=== PATIENT | male | born 1985 | race Two or more races ===

== ENCOUNTER 2023-10-05 23:06 | Inpatient (IN) | payer OTHER ==
[2023-10-05] MEDS ORDERED: morphine SULFATE 4 MG/ML VIAL IVPUSH ONE (23:39)
[2023-10-05] MEDS ORDERED: SODIUM CHLORIDE 0.9% 500 ML INFUS.BAG IV ONE (23:39)
[2023-10-05] MEDS ORDERED: morphine CARPU-JECT 4 MG/1 ML DISP.SYRIN IVPUSH ONE (23:39)
[2023-10-06] MEDS ORDERED: morphine SULFATE 4 MG/ML VIAL ONE ×2 (00:03→04:45)
[2023-10-06 00:29] LABS: HEMATOCRIT 41.6 % (35.4-49); HEMOGLOBIN 13.9 GM/dL (11.7-16.9); MCH 27.8 pg (25.7-33.7); MCHC 33.5 g/dl (32.0-35.9); MEAN PLT VOLUME 8.1 fl (7.5-11.1); PLATELET COUNT 287 10^3/uL (134-434); RBC 5.01 M/mm3 (4.00-5.60); RDW 13.6 % (11.9-15.9)
[2023-10-06 01:05] LABS: POTASSIUM 3.7 mmol/L (3.5-5.1)
[2023-10-06 01:07] LABS: ALBUMIN 3.7 g/dl (3.4-5.0)
[2023-10-06 01:08] LABS: BLOOD UREA NITROGEN 12.8 mg/dL (7-18)
[2023-10-06 01:10] LABS: CREATININE 1.1 mg/dL (0.55-1.3)
[2023-10-06 01:12] LABS: BILIRUBIN,TOTAL 0.6 mg/dL (0.2-1); TOT PROT 7.9 g/dl (6.4-8.2)
[2023-10-06 01:37] LABS: URINE APPEARANCE CLEAR; URINE BILIRUBIN NEGATIVE (NEGATIVE); URINE COLOR YELLOW; URINE GLUCOSE (UA) NEGATIVE (NEGATIVE); URINE KETONE 2+ (NEGATIVE); URINE LEUK ESTERASE NEGATIVE (NEGATIVE); URINE NITRITE NEGATIVE (NEGATIVE); URINE PROTEIN TRACE (NEGATIVE); URINE UROBILINOGEN 0.2 mg/dL (0.2-1.0)
[2023-10-06 02:46] LABS: ANISOCYTOSIS 3+; MACROCYTOSIS 0; ROULEAU 2+
[2023-10-06] MEDS ORDERED: PIPERACILLIN/TAZOB 4.5 GM 4.5 GM in DEXTROSE 5%-WATER 100 ML IVPB ONE (03:18)
[2023-10-06] MEDS ORDERED: PIPERACILLIN/TAZOB 4.5 GM 4.5 GM/100 ML BAG IVPB ONE (03:43)
[2023-10-06] MEDS ORDERED: ONDANSETRON 4 MG/2 ML VIAL IVPUSH PRN (04:15)
[2023-10-06] MEDS ORDERED: ACETAMINOPHEN 325 MG TABLET (FP) PO PRN (04:15)
[2023-10-06] MEDS ORDERED: morphine CARPU-JECT 4 MG/1 ML DISP.SYRIN IVPUSH PRN (04:16)
[2023-10-06] MEDS: SODIUM CHLORIDE 1,000 ML IV SCH ×2 (04:35→20:11)
[2023-10-06 05:33] LABS: INR 1.35 (0.83-1.09); PROTHROMBIN TIME (PATIENT) 15.6 SEC (9.7-13.0)
[2023-10-06] MEDS ORDERED: ACETAMINOPHEN 1000 MG/100 ML BAG IVPB PRN (07:17)
[2023-10-06 07:42] LABS: HEMATOCRIT 38.9 % (35.4-49); HEMOGLOBIN 12.5 GM/dL (11.7-16.9); MCH 27.4 pg (25.7-33.7); MCHC 32.2 g/dl (32.0-35.9); MEAN CELL VOLUME 85.2 fl (80-96); MEAN PLT VOLUME 8.4 fl (7.5-11.1); PLATELET COUNT 256 10^3/uL (134-434); RBC 4.57 M/mm3 (4.00-5.60); RDW 13.5 % (11.9-15.9); WHITE BLOOD COUNT 18.6 K/mm3 (4.0-10.0)
[2023-10-06 08:02] LABS: POTASSIUM 3.7 mmol/L (3.5-5.1)
[2023-10-06 08:09] LABS: CALCIUM 8.4 mg/dL (8.5-10.1)
[2023-10-06 08:10] LABS: BLOOD UREA NITROGEN 11.5 mg/dL (7-18); MAGNESIUM 2.1 mg/dL (1.8-2.4)
[2023-10-06 08:13] LABS: PHOSPHOROUS 2.8 mg/dL (2.5-4.9)
[2023-10-06] MEDS: ENOXAPARIN NA (PORCINE) 40 MG/0.4 ML DISP.SYRIN SQ SCH (09:39)
[2023-10-06 11:54] VITALS: BMI 25.2
[2023-10-06] MEDS: PIPERACILLIN/TAZOB 3.375 GM 3.375 GM in DEXTROSE 5%-WATER - 50 ML IVPB SCH (17:26)
[2023-10-07] MEDS: morphine SULFATE 4 MG/ML VIAL IVPUSH PRN ×3 (01:04→23:47)
[2023-10-07] MEDS: PIPERACILLIN/TAZOB 3.375 GM 3.375 GM in DEXTROSE 5%-WATER - 50 ML IVPB SCH ×3 (02:16→17:06)
[2023-10-07] MEDS: SODIUM CHLORIDE 1,000 ML IV SCH ×2 (04:30→05:53)
[2023-10-07] MEDS: ENOXAPARIN NA (PORCINE) 40 MG/0.4 ML DISP.SYRIN SQ SCH (09:31)
[2023-10-07 09:32] LABS: BASO % 0.2 % (0-2.0); EOS % 0.1 % (0-4.5); HEMOGLOBIN 13.2 GM/dL (11.7-16.9); LYMPH % 6.8 % (8-40); MCH 28.2 pg (25.7-33.7); MCHC 33.8 g/dl (32.0-35.9); MEAN CELL VOLUME 83.5 fl (80-96); MEAN PLT VOLUME 8.5 fl (7.5-11.1); MONO % 6.4 % (3.8-10.2); NEUT % 86.5 % (42.8-82.8); PLATELET COUNT 287 10^3/uL (134-434); RBC 4.67 M/mm3 (4.00-5.60); RDW 13.3 % (11.9-15.9); WHITE BLOOD COUNT 13.6 K/mm3 (4.0-10.0)
[2023-10-07] MEDS ORDERED: PIPERACILLIN/TAZOB 3.375 GM 3.375 GM in DEXTROSE 5%-WATER - 50 ML IVPB ONE (10:00)
[2023-10-07 10:01] LABS: TOT PROT 7.1 g/dl (6.4-8.2)
[2023-10-07 10:04] LABS: CALCIUM 8.2 mg/dL (8.5-10.1); MAGNESIUM 2.3 mg/dL (1.8-2.4)
[2023-10-07 10:07] LABS: CREATININE 0.8 mg/dL (0.55-1.3)
[2023-10-07 10:09] LABS: BILIRUBIN,TOTAL 0.6 mg/dL (0.2-1)
[2023-10-07] MEDS ORDERED: SODIUM CHLORIDE 1,000 ML IV SCH (13:40)
[2023-10-08] MEDS: PIPERACILLIN/TAZOB 3.375 GM 3.375 GM in DEXTROSE 5%-WATER - 50 ML IVPB SCH ×3 (02:19→17:15)
[2023-10-08 09:16] LABS: BASO % 0.3 % (0-2.0); EOS % 0.4 % (0-4.5); HEMATOCRIT 40.4 % (35.4-49); HEMOGLOBIN 13.8 GM/dL (11.7-16.9); LYMPH % 11.8 % (8-40); MCH 28.3 pg (25.7-33.7); MEAN CELL VOLUME 83.3 fl (80-96); MEAN PLT VOLUME 8.3 fl (7.5-11.1); NEUT % 81.5 % (42.8-82.8); PLATELET COUNT 332 10^3/uL (134-434); RBC 4.85 M/mm3 (4.00-5.60); RDW 13.5 % (11.9-15.9); WHITE BLOOD COUNT 11.4 K/mm3 (4.0-10.0)
[2023-10-08] MEDS: morphine SULFATE 4 MG/ML VIAL IVPUSH PRN (09:37)
[2023-10-08 09:50] LABS: POTASSIUM 3.7 mmol/L (3.5-5.1)
[2023-10-08] MEDS: ENOXAPARIN NA (PORCINE) 40 MG/0.4 ML DISP.SYRIN SQ SCH (10:01)
[2023-10-08 10:14] LABS: ALBUMIN 3.1 g/dl (3.4-5.0); CALCIUM 8.7 mg/dL (8.5-10.1); MAGNESIUM 2.3 mg/dL (1.8-2.4)
[2023-10-08 10:15] LABS: BLOOD UREA NITROGEN 15.4 mg/dL (7-18)
[2023-10-08 10:17] LABS: CREATININE 0.8 mg/dL (0.55-1.3)
[2023-10-08 10:19] LABS: BILIRUBIN,TOTAL 0.5 mg/dL (0.2-1); TOT PROT 7.2 g/dl (6.4-8.2)
[2023-10-09] MEDS: PIPERACILLIN/TAZOB 3.375 GM 3.375 GM in DEXTROSE 5%-WATER - 50 ML IVPB SCH ×2 (03:20→09:43)
[2023-10-09 06:23] VITALS: RESP 18
[2023-10-09] MEDS: ENOXAPARIN NA (PORCINE) 40 MG/0.4 ML DISP.SYRIN SQ SCH (09:43)
[2023-10-09 10:23] LABS: POTASSIUM 3.2 mmol/L (3.5-5.1)
[2023-10-09 10:27] LABS: CALCIUM 8.5 mg/dL (8.5-10.1)
[2023-10-09 10:28] LABS: ALBUMIN 3.1 g/dl (3.4-5.0); BLOOD UREA NITROGEN 10.8 mg/dL (7-18)
[2023-10-09 10:31] LABS: CREATININE 0.9 mg/dL (0.55-1.3)
[2023-10-09 10:32] LABS: BILIRUBIN,TOTAL 0.5 mg/dL (0.2-1); TOT PROT 6.8 g/dl (6.4-8.2)
[2023-10-09 10:34] LABS: BASO % 0.4 % (0-2.0); EOS % 2.2 % (0-4.5); HEMATOCRIT 40.6 % (35.4-49); HEMOGLOBIN 13.6 GM/dL (11.7-16.9); LYMPH % 19.6 % (8-40); MCHC 33.4 g/dl (32.0-35.9); MEAN PLT VOLUME 8.1 fl (7.5-11.1); MONO % 7.3 % (3.8-10.2); NEUT % 70.5 % (42.8-82.8); PLATELET COUNT 305 10^3/uL (134-434); RBC 4.83 M/mm3 (4.00-5.60); RDW 13.1 % (11.9-15.9); WHITE BLOOD COUNT 8.7 K/mm3 (4.0-10.0)
[2023-10-09 15:21] VITALS: BP 135/87; PULSE 88; TEMP 97.8
[2023-10-09] MEDS ORDERED: AMOX TR/POT CLAV 875MG/125MG TABLETS (FP) PO SCH (17:30)
== END 2023-10-09 18:15 | disposition home or self-care (01) | DRG 720 ==
LOC: JER 23:06 → JERBED 10-06 03:06 → J7W 10-06 08:36 → J8W 10-06 12:28
PROVIDERS: ADMIT Internal Medicine; ATTEND Internal Medicine
DX: A41.9 Sepsis, unspecified organism (principal); E78.5 Hyperlipidemia, unspecified; K57.20 Diverticulitis of large intestine with perforation and abscess without bleeding; E87.6 Hypokalemia
CPT/HCPCS: 0241U-QW; 36415; 74177-TC; 80048; 80053; 80061; 81003; 83690; 83735; 84100; 85025; 85027; 85610; 86140; 86850; 86900; 86901; 87040; 87086; 93005; 93010; 94010; 97116-GP; 97161-GP; 99285-25; Q9967